=== PATIENT | male | born 1965 | race Caucasian/White ===

== ENCOUNTER 2019-12-20 04:41 | Inpatient (IN) | payer OTHER ==
[~2019-12-20] VITALS: Ht 177.8 cm; Wt 76.8 kg
--- NOTE | 2019-12-20 04:55 | NUR ---
MS RN ADMITTING NOTES PICKED UP PT FROM ADMITTING AND BROUGHT TO UNIT. PREVIOUS RECORD WAS NOT GIVEN FROM ADMITTING. PT ARRIVED ON UNIT AND AMBULATORY PENDING DAY SURGERY. PT A/O X3 AND ABLE TO MAKE NEEDS KNOWN. RESPIRATIONS EVEN AND UNLABORED WITH NO S/S OF ACUTE DISTRESS OR SOB NOTED. NO COMPLAINTS OF PAIN AT THIS TIME. PENDING MRSA TEST. PT ALSO PENDING COVID-19 TEST PER NURSE SUPERIOR, PREVIOUS ONLY NEGATIVE. ORIENTED PT TO STAFF AND ROOM. EXPLAINED SITUATION WITH PT AND PT VERBALIZED UNDERSTANDING. SAFETY MEASURES IN PLACE WITH BED IN LOWEST LOCKED POSITION WITH SIDE RAILS UP X2. CALL LIGHT WITHIN REACH. WILL CONTINUE TO MONITOR.
[2019-12-20 05:00] VITALS: BP 139/76
[2019-12-20] MEDS ORDERED: SEVOFLURANE 250 ML BOTTLE IH ONE (06:04)
[2019-12-20] MEDS ORDERED: ANESTHESIA TRAY IN PYXIS 1 EA TRAY MC ONE (06:04)
[2019-12-20] MEDS ORDERED: MORPHINE SULFATE/PF 10 MG/10ML (1MG/ML) AMPUL ONE (06:04)
[2019-12-20] MEDS ORDERED: FENTANYL PF 100MCG/2ML AMPUL ONE ×2 (06:04→06:42)
[2019-12-20] MEDS ORDERED: BACITRACIN 50000 UNITS/VIAL ONE (06:05)
[2019-12-20] MEDS ORDERED: MIDAZOLAM HCL 2 MG/2ML VIAL ONE (06:05)
[2019-12-20 06:20] LABS: CALCIUM, SERUM 8.8 mg/dL (8.5-10.1); POTASSIUM 3.5 mmol/L (3.5-5.1)
--- NOTE | 2019-12-20 06:20 | NUR ---
MS RN NOTES PT BROUGHT DOWN TO SURGERY WITH OR NURSE. OR NURSE BROUGHT PREVIOUS HX AND PAPERWORK.
[2019-12-20] MEDS ORDERED: EPINEPHRINE (1:1000) 1 MG/ML AMPUL ONE (06:23)
[2019-12-20 06:28] LABS: ALBUMIN 3.8 g/dL (3.4-5.0); BILIRUBIN,TOTAL 0.4 mg/dL (0.2-1.0); TOTAL PROTEIN, SERUM 7.6 g/dL (6.4-8.2)
[2019-12-20 06:30] LABS: BASOPHILS # (AUTO) 0.1 /CMM (0.0-0.2); BASOPHILS % (AUTO) 1.4 % (0.0-2.0); EOSINOPHILS % (AUTO) 1.7 % (0.0-6.0); HEMATOCRIT 47 % (39-51); HEMOGLOBIN 15.9 g/dL (13.5-17.5); LYMPHOCYTES # (AUTO) 1.2 /CMM (0.8-4.8); LYMPHOCYTES % (AUTO) 23.8 % (20.0-44.0); MEAN CORPUSCULAR HGB CONC 34 g/dl (31.0-36.0); MEAN CORPUSCULAR VOLUME 88 fL (80-96); MONOCYTES # (AUTO) 0.4 /CMM (0.1-1.30); NEUTROPHILS # (AUTO) 3.4 /CMM (1.8-8.9); NEUTROPHILS % (AUTO) 66.1 % (43.0-81.0); PLATELET COUNT (AUTO) 270 /CMM (150-450); RED BLOOD CELL COUNT(AUTO) 5.38 MIL/uL (4.5-6.0); WHITE BLOOD COUNT (AUTO) 5.1 K/uL (4.3-11.0)
[2019-12-20] MEDS ORDERED: ROCURONIUM BROMIDE 50 MG/5 ML ONE (06:42)
[2019-12-20] MEDS ORDERED: HYDROMORPHONE INJ 2 MG/ML DISP.SYRIN ONE (06:42)
[2019-12-20] MEDS ORDERED: TRANEXAMIC ACID 3,000 MG in SODIUM CHLORIDE IRRIG SOLUTION 70 ML IR ONE (07:00)
[2019-12-20] MEDS ORDERED: BUPIVACAINE 0.5 % PF 150 MG/30 ML VIAL ONE (07:32)
--- NOTE | 2019-12-20 07:45 | NUR ---
MS RN NOTES RECEIVED REPORT FROM WARP TIER. PT IS AT THE OR HAVING SURGERY WITH DR. FISCHER. WILL CONTINUE TO MONITOR.
[2019-12-20] MEDS ORDERED: OXYC-454 PO (07:47)
[2019-12-20] MEDS ORDERED: KETOROLAC TROMETHAMINE INJ 30 MG/ML VIAL ONE ×2 (08:47→08:49)
[2019-12-20] MEDS ORDERED: MEPERIDINE HCL/PF 100 MG/ML DISP.SYRIN ONE (09:01)
[2019-12-20 09:50] VITALS: BP 128/76
--- NOTE | 2019-12-20 09:52 | NUR ---
MS RN NOTES PT S/P RIGHT KNEE ARTHROPLASTY. DRESSINGS NOTED, DRY AND INTACT.
--- NOTE | 2019-12-20 09:57 | NUR ---
MS JESUS NOTES RECEIVED PT IN BED, AWAKE FROM RECOVERY. REPORT GIVEN BY JESUS/RICARDO. PT ON SUPPLEMENTARY OXYGEN AT 2LPM VIA NC, WITH NO ACUTE RESPIRATORY DISTRESS. PT DENIES ANY PAIN OR DISCOMFORT AT THIS TIME. JESUS SILVA ENDORSED A FWW AND A KNEE IMMOBILIZER AT PT'S BEDSIDE. VITALS ISGNS TAKEN AND RECORDED. TO START IVF D5 1/2 NS AT 125ML/HR. PT KEPT COMFORTABLE. CALL LIGHT KEPT WITHIN REACH. PT'S BED IN LOWEST, LOCKED POSITION WITH SR X3. PHYSICAL THERAPIST/GARCIA AT THE UNIT MADE AWARE OF PT IS NOW IN THE UNIT, PT AND OT TO EVAL IN THE AFTERNOON. WILL CONTINUE PLAN OF CARE.
[2019-12-20] MEDS ORDERED: ZOLPIDEM TARTRATE 5 MG TABLET PO PRN (10:00)
[2019-12-20] MEDS ORDERED: DOCUSATE SODIUM 250 MG CAPSULE PO PRN (10:00)
[2019-12-20] MEDS ORDERED: ONDANSETRON HCL/PF 4 MG/2 ML VIAL IVP PRN (10:00)
[2019-12-20] MEDS ORDERED: HYDROCODONE/APAP 5/325MG 1 EACH TABLET PO PRN (10:00)
[2019-12-20] MEDS ORDERED: SENNOSIDES 8.6 MG TABLET PO PRN (10:00)
[2019-12-20] MEDS ORDERED: BISACODYL SUPP (10 MG) 10 MG/SUPP.RECT SUPP.RECT RC PRN (10:00)
[2019-12-20] MEDS ORDERED: ACETAMINOPHEN 325 MG TABLET PO PRN (10:00)
--- NOTE | 2019-12-20 10:02 | NUR ---
MS RN NOTES SCHEDULED ANCEF AT 0700, GIVEN AT THE OR. VERIFIED WITH RN/RICARDO FROM RECOVERY.
[2019-12-20] MEDS ORDERED: LORAZEPAM 1 MG TABLET PO ONE (10:58)
[2019-12-20] MEDS ORDERED: CLONIDINE HCL 0.1 MG TABLET PO PRN (11:00)
[2019-12-20] MEDS ORDERED: MAG HYDROX/AL HYDROX/SIMETH 30 ML UDC PO PRN (11:00)
[2019-12-20] MEDS ORDERED: diphenhydrAMINE HCL 25 MG CAPSULE PO PRN (11:00)
[2019-12-20] MEDS ORDERED: ONDANSETRON HCL/PF 4 MG/2 ML VIAL IV PRN (11:00)
[2019-12-20] MEDS ORDERED: MENTHOL/CETYLPYRD (CEPACOL) 1 LOZ LOZENGE PO PRN (11:00)
[2019-12-20] MEDS ORDERED: LORAZEPAM 1 MG TABLET PO PRN ×2 (11:00→18:00)
[2019-12-20] MEDS: LEVOTHYROXINE SODIUM 88 MCG TABLET PO SCH ×2 (11:15→21:00)
[2019-12-20] MEDS: FAMOTIDINE (20 MG) 20 MG TABLET PO SCH ×2 (11:15→20:56)
[2019-12-20 12:00] VITALS: BP 138/77
[2019-12-20] MEDS: IV D5/0.45 NACL 1,000 ML IV PRN ×2 (12:25→22:08)
[2019-12-20] MEDS ORDERED: oxyCODONE IR immediate release 5 MG PO ONE (13:00)
--- NOTE | 2019-12-20 13:23 | NUR ---
MS RN NOTES PT FELT A LITTLE NAUSEOUS AND ZOFRAN PRN IV GIVEN ORDERED. SCHEDULED OXY AT 133 GIVEN WELL EVEN PT'S PAIN LVL AT THIS TIME IS 2-4, PHYSICAL THERAPY AT BEDSIDE TO WORK WITH THE PT. WILL CONTINUE TO MONITOR.
--- NOTE | 2019-12-20 13:45 | NUR ---
MS RN NOTES JUST SEEN AND EVALUATED BY PHYSICAL THERAPIST. PT ABLE TO WALK WITH FWW, 40FT AND NOW ON CPM MACHINE AT 40 DEGREES, TO RUN FOR 4-6HOURS. WILL CONTINUE TO MONITOR.
[2019-12-20] MEDS: ANCEF 1 GM/50 ML D5W IV SCH ×4 (14:26→23:02)
[2019-12-20 16:00] VITALS: BP 113/67
--- NOTE | 2019-12-20 16:31 | NUR ---
MS RN NOTES RECEIVED CALL FROM DR. KRAMER, INFORMED PT WALKED ABOUT 40FT WITH PHYSICAL THERAPISTS AND NOW ON CPM MACHINE. PT COMFORTABLE IN BED FOR NOW, PAIN LEVEL OF 2-3 ONLY UP TO THIS TIME. PER MD, HE CANNOT DISCHARGE PT TODAY, NEEDS OVERNIGHT MONITORING. INFORMED PT. WILL CONTINUE TO MONITOR.
[2019-12-20] MEDS: DOCUSATE SODIUM 100 MG CAPSULE PO SCH (16:39)
--- NOTE | 2019-12-20 18:49 | NUR ---
MS RN NOTES PT REMAINS IN BED, AWAKE, A/O X4. PT ON SUPPLEMENTARY OXYGEN AT 2LPM VIA NC, WITH NO ACUTE RESPIRATORY DISTRESS. PT DENIES ANY PAIN OR DISCOMFORT AT THIS TIME. AFWW AND A KNEE IMMOBILIZER AT PT'S BEDSIDE. IVF D5 1/2 NS AT 125ML/HR TO LFA G20, INATC AND FLUID INFUSING WELL. PT KEPT COMFORTABLE. ALL NEEDS AND CARE ATTENDED. CALL LIGHT KEPT WITHIN REACH. PT'S BED IN LOWEST, LOCKED POSITION WITH SR X3. WILL ENDORSE TO INCOMING NIGHT NURSE FOR KENNY.
--- NOTE | 2019-12-20 19:30 | NUR ---
MS RN OPENING NOTES RECEIVED PATIENT FROM MORNING SHIFT ALERT AND ORIENTED X 3. VERBALLY RESPONSIVE AND ABLE TO FOLLOW DIRECTIONS. BREATHING REGULAR AND UNLABORED ON ROOM AIR. LEFT FOREARM G20 IV LINE INTACT AND PATENT, INFUSING WELL WITH NO BLEEDING OR S/S OF INFILTRATION NOTED. DENIES SUICIDAL IDEATION OR PAIN/DISCOMFORT AT THIS TIME. BED LOW AND LOCKED ON SEMI FOWLERS POSITION. CALL LIGHT IN REACH. WILL CONTINUE TO MONITOR.
[2019-12-20 20:00] VITALS: BP 120/69
--- NOTE | 2019-12-20 20:15 | NUR ---
MS RN NOTES ASSESSED FOR PAIN, SAID THAT HE HAS 4/10 RIGHT KNEE PAIN. PAIN MEDICATIONS OFFERED BUT REFUSED. PER PATIENT HE CAN STILL TOLERATE IT AND WILL ASK FOR MEDICATIONS IF THE PAIN IS TOO MUCH TO BEAR.
[2019-12-20 20:56] VITALS: BP 120/69
--- NOTE | 2019-12-20 21:00 | NUR ---
MS RN NOTES ANXIETY VERBALIZED, ATIVAN 0.5MG GIVEN BY MOUTH. NON-PHARMACOLOGICAL INTERVENTIONS PROVIDED. WILL CONTINUE TO MONITOR.
[2019-12-20] MEDS: HYDROMORPHONE 1 MG/1 ML DISP.SYRIN IV PRN (22:04)
--- NOTE | 2019-12-20 22:10 | NUR ---
MS RN NOTES COMPLAINED OF 6/10 RIGHT KNEE PAIN, DILAUDID 0.5MG GIVEN VIA IV PUSH. NON-PHARMACOLOGICAL INTERVENTIONS PROVIDED. VITAL SIGNS WNL. WILL CONTINUE TO MONITOR.
[2019-12-21] MEDS: HYDROMORPHONE 1 MG/1 ML DISP.SYRIN IV PRN ×2 (05:40→09:29)
--- NOTE | 2019-12-21 06:30 | NUR ---
MS RN CLOSING NOTES PATIENT IN BED ALERT AND ORIENTED X 3. AFEBRILE WITH NO S/S OF DISTRESS OBSERVED. LEFT FOREARM G20 IV LINE PATENT AND INFUSING WELL. COMPLAINED OF 3/10 RIGHT KNEE PAIN, NON-PHARMACOLOGICAL INTERVENTIONS PROVIDED. SPOKE WITH WITH ORDERS TO GIVE OXYCODONE IR BEFORE SHIFT ENDS. BED LOW AND LOCKED ON SEMI FOWLERS POSITION. CALL LIGHT IN REACH. WILL ENDORSE TO MORNING SHIFT FOR KENNY.
--- NOTE | 2019-12-21 06:50 | NUR ---
MS RN NOTES SEEN AND EXAMINED BY WITH ORDERS TO GIVE OXYCODONE IR NOW FOR PATIENTS 3/10 RIGHT KNEE PAIN, NOTED AND CARRIED OUT.
[2019-12-21] MEDS: oxyCODONE IR immediate release 5 MG PO PRN ×3 (06:55→16:32)
--- NOTE | 2019-12-21 07:13 | NUR ---
MS RN NOTES RECEIVED PT IN BED, AWAKE, A/O X4. PT ON SUPPLEMENTARY OXYGEN AT 2LPM VIA NC, WITH NO ACUTE RESPIRATORY DISTRESS. PT STATED TOLERABLE PAIN AT THIS TIME, DURING ROUND DR. KRAMER AT BEDSIDE AND ORDERED CIVIL ENGINEER'S AIDE TO GIVE OXY IR IN PREPARATION FOR PHYSICAL THERAPY. A FWW AND A KNEE IMMOBILIZER AT PT'S BEDSIDE. IVF D5 1/2 NS AT 125ML/HR TO LFA G20, INTACT AND OPERATIONAL. PT KEPT COMFORTABLE. CALL LIGHT KEPT WITHIN REACH. PT'S BED IN LOWEST, LOCKED POSITION WITH SR X3. WILL CONTINUE PLAN OF CARE.
[2019-12-21 08:00] VITALS: BP 112/76
[2019-12-21] MEDS: FAMOTIDINE (20 MG) 20 MG TABLET PO SCH (08:25)
[2019-12-21] MEDS: DOCUSATE SODIUM 100 MG CAPSULE PO SCH ×2 (08:25→16:00)
[2019-12-21] MEDS ORDERED: ASPIRIN 325 MG TABLET PO SCH (09:00)
--- NOTE | 2019-12-21 09:16 | NUR ---
WOUND CARE CONSULT: RECEIVED CONSULT FOR LEFT KNEE WOUND BUT PT HAS ONLY SCAR TO LEFT KNEE AREA. RT LEG SURGICAL DRESSING IS DRY AND INTACT. WILL SEE PRN. CURRENT PAMELA SCORE IS 20.
[2019-12-21 16:00] VITALS: BP 130/70
--- NOTE | 2019-12-21 17:05 | NUR ---
MS PLUG DRILL OPERATOR NOTES PT AWAKE, A/O X4. DISCHARGE TO HOME. PT TOLERATING RA, WITH NO ACUTE RESPIRATORY DISTRESS. PT HAD PAIN MEDICINE AROUND 1630 OXY PRN FOR PAIN BEFORE LEAVING. PT REVIEWED AND SIGNED DISCHARGE INSTRUCTIONS AND INVENTORY LIST, ALL BELONGINGS WITH THE PT. NO NEW SKIN ISSUES NOTED, NO PICTURE FILED IN THE CHART. ONLY RIGHT KNEE INCISION, S/P SURGERY, SEEN AND REPLACED DRESSING BY PA/CC THIS MORNING PER PT. PT HAS FWW AND A KNEE IMMOBILIZER IN HIS RIGHT KNEE. PIV LFA G20, REMOVED AND APPLIED DRY DRESSING. ALL NEEDS AND CARE ATTENDED AND PROVIDED. PT WHEELED PT TO THE LOBBY VIA WHEELCHAIR. LEFT THE UNIT AT 1700, CHARGE NURSE/DAYRON AND HOSPITALIST/ED AWARE OF DISCHARGE. PRESCRIPTIONS GIVEN BY DR. FISCHER BEFORE SURGERY IS AT HIS HOME PER PT, AND INSTRUCTED BY DR. KRAMER TO TAKE IT [id number] NEEDED.
== END 2019-12-21 16:37 | disposition home health service (06) | DRG 470 ==
LOC: DS 04:41 → MED 04:42
PROVIDERS: ADMIT Internal Medicine; ATTEND Internal Medicine
PROC: 0SRC0L9 Replacement of Right Knee Joint with Medial Unicondylar Synthetic Substitute, Cemented, Open Approach (ICD-10-PCS; principal; 2019-12-20)
DX: M12.561 Traumatic arthropathy, right knee (principal); F41.9 Anxiety disorder, unspecified; E03.9 Hypothyroidism, unspecified; E78.00 Pure hypercholesterolemia, unspecified; M22.41 Chondromalacia patellae, right knee; S83.281A Other tear of lateral meniscus, current injury, right knee, initial encounter; X58.XXXA Exposure to other specified factors, initial encounter; Y93.9 Activity, unspecified; Y92.009 Unspecified place in unspecified non-institutional (private) residence as the place of occurrence of the external cause; F41.0 Panic disorder [episodic paroxysmal anxiety]
CPT/HCPCS: 36415; 80053-TC; 85025-TC; 85610-TC; 85730-TC; 86850-TC; 87081-TC; 97110-TC; 97116-TC; 97530-TC; 97760-TC; A4217; C1713; C1776; C9803-CS; G0378; J0171; J0690; J1100; J1170; J1885; J2175; J2250; J2274; J2405; J2710; J2765; J3010; J3490; J7040; J7060; L1830; U0003-CS